=== PATIENT | female | born 1990 | race Caucasian/White ===

== ENCOUNTER 2017-03-11 17:10 | Emergency (ER) | payer SELFPAY ==
[2017-03-11 17:15] VITALS: TEMP 97.9; O2SAT 99
--- NOTE | 2017-03-11 17:50 | EDPHY ---
H & P Stated Complaint: eyes swollen since Wednesday getting worse Time Seen by Provider: 03/11/17 17:50 HPI/ROS: CHIEF COMPLAINT: Bilateral eyelid irritation and swelling HISTORY OF PRESENT ILLNESS: The patient presents to the emergency department with bilateral eyelid irritation and swelling. The patient has had these symptoms occur intermittently over the past 3 months. This is her 3rd episode. The patient is a daily contact lens wearer. She was seen at [facility] and referred to the emergency department over concerns about possible orbital cellulitis. The patient has no complaints of eye pain. REVIEW OF SYSTEMS: A comprehensive 10 point review of systems is otherwise negative aside from elements mentioned in the history of present illness. Source: Patient - Personal History Current Tetanus/Diphtheria Vaccine: No Current Tetanus Diphtheria and Acellular Pertussis (TDAP): No - Medical/Surgical History Hx Asthma: No Hx Chronic Respiratory Disease: No Hx Diabetes: No Hx Cardiac Disease: No Hx Renal Disease: No Hx Cirrhosis: No Hx Alcoholism: No Hx HIV/AIDS: No Hx Splenectomy or Spleen Trauma: No Other PMH: oopherectomy - Social History Smoking Status: Never smoked - Physical Exam Exam: Visual Acuity: noted from Nurse's notes. Pupils: equal round and reactive to light EOMI Skin: Significant soft tissue swelling with blepharitis right greater than left , discharge noted. Her right periorbital soft tissues are a bit more erythematous inflamed Conjunctivae: Bilateral ocular discharge noted Anterior chamber: normal, no hyphema or hypopyon Constitutional: Initial Vital Signs Temperature (C) 36.6 C 03/11/17 17:13 Heart Rate 81 03/11/17 17:13 Respiratory Rate 18 03/11/17 17:13 Blood Pressure 104/85 H 03/11/17 17:13 O2 Sat (%) 99 03/11/17 17:13 O2 Delivery Mode Room Air Allergies/Adverse Reactions: No Known Allergies Allergy (Unverified 03/11/17 17:12) Home Medications: Medication Instructions Recorded NK [No Known Home Meds] 03/11/17 Medical Decision Making ED Course/Re-evaluation: The patient presents to the ED with intermittent blepharitis over the past 3 months. There certainly an underlying allergic component. She has no evidence of a orbital cellulitis. She does have evidence of a mild preseptal cellulitis in her right eye. I did curbside the on-call farm management agent reviewed her case. Plan at this point time will be to begin oral steroids, antibiotics both oral and topical. The patient will be seen tomorrow in the [facility] by Dr. Hearn. The patient has been instructed not to wear her contact lenses until seen by the Ophthalmology. Differential Diagnosis: Differential diagnosis considered includes conjunctivitis, blepharitis, corneal abrasion, preseptal cellulitis, orbital cellulitis Departure - Departure Disposition: Home, Routine, Self-Care Clinical Impression: Blepharitis of both eyes, Preseptal cellulitis Condition: Good Instructions: Blepharitis (ED) Additional Instructions: 1. Contact the farm management agent you have been referred to tomorrow for a follow- up visit. He can see you in clinic tomorrow. 2. Please begin oral antibiotics (Augment), oral steroids (Medrol dose pack) and apply 1 cm of antibiotic ointment (erythromycin) to both eyes twice daily. 3. Do not wear contact lenses until cleared to do so by Ophthalmology. Referrals: Nico Hearn MD [Medical Doctor] - As per Instructions
[2017-03-11 18:54] VITALS: BP 105/82; PULSE 75; RESP 16
== END 2017-03-11 18:54 | disposition home or self-care (01) ==
DX: H01.006 Unspecified blepharitis left eye, unspecified eyelid (principal); H01.003 Unspecified blepharitis right eye, unspecified eyelid; L03.213 Periorbital cellulitis